=== PATIENT | female | born 1985 | race Caucasian/White ===

== ENCOUNTER 2024-10-01 17:32 | Emergency (ER) | payer MEDICAID ==
[~2024-10-01] VITALS: Ht 162.6 cm; Wt 90.5 kg
[2024-10-01 17:36] VITALS: BP 109/73; PULSE 109; O2SAT 99
--- NOTE | 2024-10-01 17:50 | Physician Documentation ---
History of Present Illness ~ Chief Complaint: Back Pain Stated Complaint: BACK PAIN Time Seen by MD: 17:42 OK to notify your PCP?: Yes Source: patient Mode of Arrival: POV Exam Limitations: no limitations HPI 39-year-old female presents with chronic low back pain which has been worsening over the past couple of months. She is usually able to treat it with ibuprofen but that is no longer working. She does have pain radiating down her right leg. She denies any saddle anesthesia, loss of bowel or bladder. She has a history of scoliosis. Medication Reconciliation Allergies: Coded Allergies: meperidine (Verified Allergy, Unknown, HALLUCINATE, 10/01/24) Penicillins (Verified Adverse Reaction, Severe, 10/01/24) Review of Systems All Other Systems at this time: Reviewed and Negative Physical Exam Physical Exam Vital Signs: RN Vital Signs have been reviewed: Yes, Temperature: 98.6, Source: Temporal, Heart Rate: 109, Respiratory Rate: 18, BP: 109/73, Pulse Oximetry: 99, Weight: 90.450 Pulse Oximetry Reflects: adequate oxygenation Physical Exam General: Alert, no apparent distress. HEENT: PERRL, EOMI, no injection, moist mucous membranes. Neck: Full range of motion. Respiratory: Lungs clear, no respiratory distress. Chest: No accessory muscle use. Cardiovascular: Regular rate and rhythm, no murmurs. Gastrointestinal: Soft, nontender, nondistended. Bowels sounds present. Extremities: Normal range of motion, no deformity. Back: Midline tenderness in lumbar spine. Neurologic: Oriented x4. Psychiatric: Normal mood and affect. Skin: Normal color, warm and dry. No edema, no ecchymosis. Progress Results/Orders Reviewed/noted all lab results: Yes Results/Orders Vital Signs 10/01/24 17:36 Temp 98.6 Pulse 109 Resp 18 B/P (MAP) 109/73 Pulse Ox 99 Medical Decision Making Additional info obtained from: family Findings 39-year-old female presents with chronic low back pain for the past couple of months. Physical exam reveals tenderness to palpation of lumbar spine. She is experiencing some tingling pain down into her right thigh but denies any saddle anesthesia or loss of bowel/bladder. She took 800 mg of ibuprofen prior to arrival with no relief. I gave her a lidocaine patch, Norflex and [place]. prescriptions sent for lidocaine patch and Flexeril. She is told to follow up with the primary care provider and return back here for any new or worsening symptoms. Differential Dx:Considerations: Include: AAA, Aortic dissection, Bowel obstruction, Fracture, Pyelonephritis, Urolithiasis Departure Disposition: 01 HOME / SELF CARE / HOMELESS Impression: Primary Impression: Low back pain Additional Impression: Sciatica Condition: Stable Discharge Instructions: Chronic Back Pain, Sciatica Additional Instructions: Follow up with her primary care provider in the next 3 days and return back here for any new or worsening symptoms. Please do not drive with the benazepril until you know how you react to it. You can use Tylenol and/or ibuprofen for pain relief at home as well as placing a lidocaine patch which you can wear for up to 12 hours. There are other non pharmaceutical things like ice or heat or tens unit that can be very helpful. Referrals: NO PRIMARY CARE PROVIDER (PCP) Prescriptions Lidocaine (Lidocaine) 5 % Adh..patch 1 PATCH TOP DAILY for 30 Days, #30 PATCH 0 Refills Prov: GABBY TRIANA 10/01/24 Cyclobenzaprine* (Cyclobenzaprine*) 10 Mg Tablet 1 TAB PO Q8H for muscle spasms for 10 Days, #30 TAB 0 Refills Prov: GABBY TRIANA 10/01/24 Education Educated: Patient, Family Educated regarding: diagnosis, treatment, prognosis, need for follow up Signature Scribe Signature: . Attestation: Scribed for Gabby Triana by Gabby Shannon NP . 10/01/24 18:05 Parts of this note were created using [employer] voice recognition software progr . While efforts were made to correct any mistakes made by this voice recognition software program, nonsensical phrases may remain in this note. In addition, there may be errors and syntax, grammar, content and spelling. GABBY TRIANA Oct 01, 2024 17:50
[2024-10-01] MEDS ORDERED: LIDO700A47 TOP (18:03)
[2024-10-01] MEDS ORDERED: CYCL-1 PO (18:03)
[2024-10-01] MEDS: orphenadrine citrate 60mg/2ml inj. IM ONE (18:12)
[2024-10-01 18:13] VITALS: RESP 18
[2024-10-01] MEDS: HYDROcodone/acetaminophen 5mg/325mg tablet PO ONE (18:13)
[2024-10-01 18:22] VITALS: TEMP 98.6
== END 2024-10-01 18:50 | disposition home or self-care (01) ==
LOC: ER 17:33
DX: M54.41 Lumbago with sciatica, right side (principal); M79.604 Pain in right leg; Z88.0 Allergy status to penicillin; Z88.5 Allergy status to narcotic agent
CPT/HCPCS: 96372; 99283; J2360